=== PATIENT | male | born 1980 | race American Indian/Alaskan Native ===

== ENCOUNTER 2020-11-04 22:18 | Inpatient (IN) | payer MEDICAID, OTHER ==
[2020-11-04] MEDS ORDERED: Sodium Chloride 0.9% 10 ML Syringe FLUSH PRN (22:22)
[2020-11-04] MEDS ORDERED: Lactated Ringers 1,000 ML IV SCH (22:30)
[2020-11-04] MEDS ORDERED: Iopamidol 612 MG/ML 150 ML Bottle IVPUSH ONE (23:01)
[2020-11-04] MEDS ORDERED: Sodium Chloride 0.9% 100 ML IV SCH (23:15)
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
[2020-11-05] MEDS ORDERED: HYDROmorphone 0.5 MG/0.5 ML Syringe IVPUSH PRN (03:06)
[2020-11-05] MEDS ORDERED: Acetaminophen 325 MG Tab PO PRN (03:07)
[2020-11-05] MEDS ORDERED: Ondansetron 4 MG/2 ML SDV IVPUSH PRN (03:07)
[2020-11-05] MEDS ORDERED: Sodium Chloride 0.9% 10 ML Syringe FLUSH PRN (03:08)
--- NOTE | 2020-11-05 07:58 | CT ---
CT cervical spine Technique: Multiple axial sections were obtained from above C1 inferiorly to the lower T2 vertebral body. Reconstructed coronal and sagittal images were obtained. Comparison: No prior cervical spine imaging is available. Findings: Vertebral body heights and disc spaces are maintained. Ligamentum nuchal calcification is seen. Small bony densities are noted off the tip of the spinous process of the T1 and T2 which appear to be old. Mild degenerative change is noted between the dens and anterior arch of C1. No bony central canal stenosis or neural foraminal stenosis is seen. No acute fracture or subluxation is seen. Mild scoliosis is noted on the reconstructed AP view. Impression: 1. Ligamentum nuchal calcification. Old fractures at the tip of the spinous process within the upper thoracic spine. 2. Scoliosis is noted. 3. No acute osseous abnormality is appreciated on CT study of the cervical spine. Diagnostic code #2 I agree with preliminary report from [facility], finalized on 11/05/20, 12:25 AM CDT, code 1
--- NOTE | 2020-11-05 08:01 | CT ---
Head CT Technique: Multiple axial sections through the brain were obtained. Intravenous contrast was not utilized. Reconstructed coronal and sagittal images were obtained. Comparison: No prior intracranial imaging is available. Findings: Ventricles along with basal cisterns and sulci over the convexities are within normal limits for the patient's age. No abnormal parenchymal densities are seen. No evidence of intracranial hemorrhage. No midline shift or mass-effect is seen. Air-fluid level and mucosal thickening is seen within the right maxillary sinus as well as mild mucosal thickening within the ethmoid and frontal sinuses. Slight soft tissue thickening is seen within the right frontal scalp. No acute calvarial abnormality is appreciated. Impression: 1. Air-fluid level and mucosal thickening within the right maxillary, ethmoid and frontal sinuses which are suspicious for pre-existing acute sinusitis. Please correlate with the patient's symptoms. 2. Mild soft tissue swelling within the right scalp. 3. No acute intracranial abnormality is appreciated. Diagnostic code #3 I agree with preliminary report from [facility], finalized on 11/05/20, 12:21 AM CDT, code 1
--- NOTE | 2020-11-05 08:05 | CT ---
CT chest Technique: Multiple axial sections through the chest were obtained. Intravenous contrast was utilized. Reconstructed coronal and sagittal images were obtained. Comparison: No prior CT chest study is available. Findings: Soft tissue hematomas are seen within the subcutaneous tissues within the anterior chest on both sides. Mediastinum appears within normal limits. Thoracic aorta shows no aneurysm. No pericardial effusion is appreciated. Very minimal pneumothorax is noted on the right side. Lungs are difficult to evaluate due to mild motion but show no definite acute parenchymal change. Bone window settings were reviewed and show a fracture within the mid to distal sternum which shows no displacement. Lucent lines are noted within the anterior first ribs on both sides and left second rib. Uncertain if this represents costochondral defects or represent nondisplaced fractures. Impression: 1. Anterior subcutaneous chest wall hematomas. 2. Nondisplaced sternal fracture. 3. Several questionable abnormalities within the upper anterior ribs either due to costochondritis defects or nondisplaced rib fractures. 4. Lungs are difficult to evaluate due to motion. No acute parenchymal abnormality is seen. 5. Small pneumothorax is noted on the right side. Diagnostic code #3 I agree with preliminary report from [facility], finalized on 11/05/20, 12:55 AM CDT, code 1 CT abdomen and pelvis Technique: Multiple axial sections were obtained from above the dome of the diaphragm inferiorly through the pubic symphysis. Intravenous contrast was utilized. Reconstructed coronal and sagittal images were obtained. Delayed images were also obtained through the abdomen and pelvis. Comparison: No prior CT abdomen or pelvis study. Findings: Liver contains no focal abnormality. Spleen is normal. Adrenal glands show no nodule. No abnormality is seen within the pancreas. Gallbladder contained no calcified gallstones. Kidneys show symmetric contrast enhancement. No hydronephrosis or mass is seen. Adrenal glands show no nodule. No retroperitoneal adenopathy or mesenteric abnormalities are seen. No pelvic mass or adenopathy is noted. No free fluid or inflammatory change is appreciated. Appendix is seen which is normal. Delayed images show contrast within the distal ureters and within the bladder. Bone window settings were reviewed which show no acute osseous abnormality. Impression: 1. Nothing acute is appreciated on CT study of the abdomen and pelvis. Diagnostic code #1 I agree with preliminary report from [facility], finalized on 11/05/20, 12:55 AM CDT, code 1
[2020-11-05] MEDS ORDERED: Polyethylene Glycol 3350 Powder 17 GM Packet PO PRN (10:45)
[2020-11-05] MEDS ORDERED: oxyCODONE 5 MG Tab PO PRN (10:45)
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
[2020-11-05] MEDS: Lactated Ringers 1,000 ML IV SCH ×2 (11:55→19:37)
[2020-11-05] MEDS: Acetaminophen 325 MG Tab PO SCH ×3 (11:55→22:03)
[2020-11-05] MEDS: Enoxaparin 40 MG/0.4 ML Syringe SUBCUT SCH (11:57)
[2020-11-05] MEDS: HYDROmorphone 1 MG/ML Syringe IVPUSH PRN ×2 (11:58→20:19)
--- NOTE | 2020-11-05 13:38 | PCM.SN.2 ---
- Free Text/Narrative Note: I reviewed the Xray of the chest and right humerus: - No obvious pneumothorax on chest xray - No obvious right humerus fracture. There is some soft tissue swelling in the right upper arm. Plan - no change in plans based on these imaging. Will await official review.
--- NOTE | 2020-11-05 18:56 | CR ---
Chest: 2 views of the chest were obtained. Comparison: Prior chest CT exam performed on 11/04/20. Heart size and mediastinum are within normal limits. Lungs show minimal atelectasis within the left base. Lungs otherwise are clear. No discrete pleural effusions or discrete pneumothorax is seen. No definite acute bony abnormality is appreciated. Sternal fracture noted on prior CT study is not visualized on current study. Impression: 1. Minimal left basilar atelectasis. 2. Previous sternal fracture seen on CT study is not appreciated on plain film exam. 3. Nothing acute is otherwise seen. No definite pneumothorax is seen. Diagnostic code #2
--- NOTE | 2020-11-05 19:03 | CR ---
Right humerus: 2 views of the right humerus were obtained. Comparison: No previous study. Diffuse soft tissue swelling is seen. No acute fracture or other bony abnormality is appreciated. Impression: 1. Soft tissue swelling. 2. No acute bony abnormality is appreciated on right humerus study. Diagnostic code #2
[2020-11-06] MEDS: HYDROmorphone 1 MG/ML Syringe IVPUSH PRN ×2 (03:32→08:52)
[2020-11-06] MEDS: Acetaminophen 325 MG Tab PO SCH ×2 (04:10→11:00)
[2020-11-06] MEDS: Lactated Ringers 1,000 ML IV SCH (04:11)
[2020-11-06] MEDS: Enoxaparin 40 MG/0.4 ML Syringe SUBCUT SCH (08:54)
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
== END 2020-11-06 14:34 | disposition home or self-care (01) | DRG 200 ==
LOC: JD.ED 22:18 → JD.MS 11-05 00:30
PROVIDERS: ADMIT Surgery; ATTEND Surgery
DX: S27.0XXA Traumatic pneumothorax, initial encounter (principal); S22.20XA Unspecified fracture of sternum, initial encounter for closed fracture; R65.10 Systemic inflammatory response syndrome (SIRS) of non-infectious origin without acute organ dysfunction; S22.31XA Fracture of one rib, right side, initial encounter for closed fracture; Z20.822 Contact with and (suspected) exposure to COVID-19; F17.200 Nicotine dependence, unspecified, uncomplicated; H54.7 Unspecified visual loss; E66.9 Obesity, unspecified; V86.99XA Unspecified occupant of other special all-terrain or other off-road motor vehicle injured in nontraffic accident, initial encounter; Z68.38 Body mass index [BMI] 38.0-38.9, adult
CPT/HCPCS: 36415; 70450; 70450-26; 71046; 71046-26; 71260; 71260-26; 72125; 72125-26; 73060-26-RT; 73060-RT; 74177; 74177-26; 80053; 80306; 80307; 81001; 83690; 85025; 93005; 93010; 94761; 99284; 99285-25; A9270-GY; J1170; J1650; J7120; Q9967; U0002